=== PATIENT | male | born 1995 | race Caucasian/White ===

== ENCOUNTER 2020-03-10 21:37 | Emergency (ER) | payer SELFPAY ==
[~2020-03-10] VITALS: Ht 185.4 cm; Wt 81.6 kg
--- NOTE | 2020-03-10 21:52 | NUR ---
PT [facility] EMPLOYEE FOR MEDICAL CLEARANCE. PT AMBULATORY WITH STEADY GAIT. PLACED IN BED 9 ON MONITOR AND PULSE OX. AWAITING FOR ORDERS.
--- NOTE | 2020-03-10 21:56 | NUR ---
AMBULATED TO THE RESTROOM TO PROVIDE URINE SAMPLE
[2020-03-10 22:09] LABS: BASOPHILS # (AUTO) 0.1 /CMM (0.0-0.2); BASOPHILS % (AUTO) 0.9 % (0.0-2.0); EOSINOPHILS % (AUTO) 2.7 % (0.0-6.0); HEMATOCRIT 42 % (39-51); HEMOGLOBIN 14.2 g/dL (13.5-17.5); LYMPHOCYTES # (AUTO) 2.3 /CMM (0.8-4.8); LYMPHOCYTES % (AUTO) 38.3 % (20.0-44.0); MEAN CORPUSCULAR HGB CONC 34 g/dl (31.0-36.0); MEAN CORPUSCULAR VOLUME 95 fL (80-96); MONOCYTES # (AUTO) 0.4 /CMM (0.1-1.30); MONOCYTES % (AUTO) 6.7 % (2.0-12.0); NEUTROPHILS % (AUTO) 51.4 % (43.0-81.0); PLATELET COUNT (AUTO) 245 /CMM (150-450); RED BLOOD CELL COUNT(AUTO) 4.38 MIL/uL (4.5-6.0); WHITE BLOOD COUNT (AUTO) 5.9 K/uL (4.3-11.0)
--- NOTE | 2020-03-10 22:15 | NUR ---
UNABLE TO PROVIDE URINE, WILL TRY AGAIN.
[2020-03-10 22:18] LABS: CALCIUM, SERUM 9.3 mg/dL (8.5-10.1); CARBON DIOXIDE 33 mmol/L (21-32); CHLORIDE 101 mmol/L (98-107); GLUCOSE 86 mg/dL (74-106); POTASSIUM 3.9 mmol/L (3.5-5.1); SODIUM SERUM 138 mmol/L (136-145); UREA NITROGEN, BLOOD 8 mg/dL (7-18)
[2020-03-10 22:24] LABS: ALANINE AMINOTRANSFERASE 96 U/L (12-78); ALBUMIN 4.4 g/dL (3.4-5.0); ALCOHOL, BLOOD < 3 mg/dL (0-0); ALKALINE PHOSPHATASE 52 U/L (46-116); ASPARTATE AMINOTRANSFERASE 46 U/L (15-37); BILIRUBIN,DIRECT 0.1 mg/dL (0.0-0.2); BILIRUBIN,TOTAL 0.4 mg/dL (0.2-1.0); TOTAL PROTEIN, SERUM 8.3 g/dL (6.4-8.2)
[2020-03-10 22:25] LABS: ACETAMINOPHEN < 10 ug/ml (10-30)
--- NOTE | 2020-03-10 22:28 | NUR ---
URINE COLLECTED, SENT TO LAB.
[2020-03-10 22:35] LABS: BILIRUBIN,URINE Negative (NEGATIVE); BLOOD, URINE Negative Ery/uL (NEGATIVE); COLOR,URINE YELLOW (YELLOW); LEUKOCYTE ESTERASE ,URINE Negative (NEGATIVE); NITRITE, URINE Negative (NEGATIVE); PROTEIN,URINE Negative (NEGATIVE); UGLUCOSE Negative (NEGATIVE); UROBILINOGEN,URINE 0.2 EU/dL (0.2)
--- NOTE | 2020-03-10 22:46 | NUR ---
PT STATED "I DO NOT WANT TO STAY HERE FOR 6 HOURS." PT THEN [facility] OUT OF THE E.D. PT [id number]. AMBULATORY WITH STEADY GAIT. VSS.
[2020-03-10 22:47] VITALS: BP 118/81
== END 2020-03-10 23:03 | disposition home or self-care (01) ==
LOC: ER 21:37
DX: T42.4X1A Poisoning by benzodiazepines, accidental (unintentional), initial encounter (principal); F11.10 Opioid abuse, uncomplicated; F12.90 Cannabis use, unspecified, uncomplicated; Z02.89 Encounter for other administrative examinations; Z72.0 Tobacco use; Z91.19 Patient's noncompliance with other medical treatment and regimen; Z86.19 Personal history of other infectious and parasitic diseases; Y92.89 Other specified places as the place of occurrence of the external cause
CPT/HCPCS: 36415; 80048-TC; 80076-TC; 81001; 85025-TC; G0480

== ENCOUNTER 2020-03-11 11:49 | Emergency (ER) | payer BC ==
[~2020-03-11] VITALS: Ht 185.4 cm; Wt 81.6 kg
[2020-03-11 12:36] VITALS: BP 120/87
--- NOTE | 2020-03-11 12:36 | NUR ---
PATIENT IS MEDICALLY CLEARED BY DR. ALBERT. Patient discharged to home in stable condition. Written and verbal after care instructions given. Patient verbalizes understanding of instruction.
== END 2020-03-11 12:36 | disposition home or self-care (01) ==
LOC: ER 11:51
DX: Z00.8 Encounter for other general examination (principal); F90.9 Attention-deficit hyperactivity disorder, unspecified type; F41.9 Anxiety disorder, unspecified; F17.200 Nicotine dependence, unspecified, uncomplicated